=== PATIENT | male | born 1990 | race Caucasian/White ===

== ENCOUNTER 2022-04-10 04:44 | Inpatient (IN) | payer OTHER ==
[~2022-04-10] VITALS: Ht 175.3 cm; Wt 83.2 kg
[2022-04-10] MEDS ORDERED: chlordiazePOXIDE HCL 25 MG CAP PO ONE ×2 (05:15→22:00)
[2022-04-10 05:36] LABS: Urine Bacteria NONE SEEN /hpf (None Seen); Urine Blood Negative /uL (Negative); Urine Specific Gravity 1.002 (1.001-1.035); Urine WBC <1 /hpf (0 - 3)
[2022-04-10 05:53] LABS: Amphetamine Screen, Urine NEGATIVE (NEGATIVE); Barbiturate Scree,Urine NEGATIVE (NEGATIVE); Benzodiazephine Screen, Urine POSITIVE (NEGATIVE); Cannabinoid Screen, Urine NEGATIVE (NEGATIVE); Cocaine Screen, Urine NEGATIVE (NEGATIVE); Opiate Scree,Urine NEGATIVE (NEGATIVE); Phencyclidine Screen, Urine NEGATIVE (NEGATIVE)
[2022-04-10 06:51] LABS: Hematocrit 46.7 % (41.0-53.0); Hemoglobin 15.2 g/dL (13.5-17.5); Mean Corpuscular Hemoglobin 30.5 pg (28.0-32.0); Mean Corpuscular Hgb Conc. 32.6 g/dL (32.0-36.0); Mean Corpuscular Volume 93.5 fL (80.0-100.0); Red Blood Cells 4.99 10^6/uL (4.5-5.90); Red Cell Distribution Width 15.2 % (11.8-14.3); White Blood Cell 3.3 10^3/uL (4.4-10.8)
[2022-04-10 06:58] LABS: Band Neutrophils % (manual) 0; Basophils % (manual) 0 (0.0-2.0); Blast Cells 0; Eosinophils % (manual) 0 (0-7); Metamyelocytes % 0; Myelocytes % 0; Promyelocytes % 0; Reactive Lymphocytes 0
[2022-04-10 07:07] LABS: Salicylate < 1.7 mg/dL (2.8-20.0)
[2022-04-10 07:09] LABS: Albumin 3.3 g/dL (3.4-5.0); Calcium 8.8 mg/dL (8.5-10.1); Potassium 4.1 mmol/L (3.5-5.1)
[2022-04-10 07:10] LABS: Acetaminophen < 10.0 ug/mL (10-30)
[2022-04-10 07:12] LABS: BUN/Creatinine Ratio 4.4; Bilirubin, Total 0.6 mg/dL (0.2-1.0); Total Protein 8.4 g/dL (6.4-8.2)
[2022-04-10 08:37] LABS: Lymphocytes % (manual) 59 (10.0-50.0); Monocytes % (manual) 5 (0-12)
[2022-04-10] MEDS ORDERED: LORazepam 0.5 MG TAB PO ONE (09:30)
[2022-04-10] MEDS ORDERED: SODIUM CHLORIDE 0.9% 1,000 ML IV ONE (10:45)
[2022-04-10 11:18] LABS: Magnesium 2.4 mg/dL (1.6-2.6)
[2022-04-10] MEDS: FOLIC ACID 1 MG, MULTIPLE VITAMIN 10 ML, MAGNESIUM SULF SDV 50% 8 MEQ, THIAMINE INJ 100... INJ SCH ×5 (16:30)
[2022-04-10] MEDS ORDERED: chlordiazePOXIDE HCL 25 MG CAP ONE (16:56)
[2022-04-10] MEDS ORDERED: CLINDAMYCIN 900MG IV 50 ML IV ONE (18:00)
[2022-04-11] MEDS ORDERED: BENAZEPRIL HCL 10 MG TAB PO ONE (15:45)
[2022-04-11] MEDS ORDERED: SODIUM CHLORIDE 0.9% 1,000 ML IV ONE (17:45)
[2022-04-11] MEDS ORDERED: LORazepam 2MG/ML-1ML VIAL IV ONE (17:45)
[2022-04-11] MEDS ORDERED: chlordiazePOXIDE HCL 25 MG CAP PO ONE (17:45)
[2022-04-11] MEDS ORDERED: NICOTINE 14 MG/24HR TOPICAL PATCH TD ONE (19:15)
[2022-04-11] MEDS ORDERED: hydrALAZINE HCL 20 MG/ML VL IV PRN (21:15)
[2022-04-11] MEDS ORDERED: HYDROcodone-ACET 5/325MG TAB PO PRN (21:15)
[2022-04-11] MEDS ORDERED: ONDANSETRON HCL 4 MG/2 ML VIAL IV PRN (21:15)
[2022-04-11] MEDS ORDERED: DOCUSATE SOD 100 MG CAP PO PRN (21:15)
[2022-04-11] MEDS ORDERED: ACETAMINOPHEN 325 MG TAB PO PRN (21:15)
[2022-04-11] MEDS: SODIUM CHLOR 0.9% PF (SALINE LOCK) 10ML VIAL/SYR IV SCH (22:00)
[2022-04-11] MEDS ORDERED: MORPHINE SULFATE INJ 2 MG/ml SYRG IV PRN (23:15)
[2022-04-11] MEDS ORDERED: NITROGLYCERIN 0.4 MG SL TAB SL PRN (23:15)
[2022-04-12] MEDS: LORazepam 2MG/ML-1ML VIAL IV PRN ×2 (00:50→08:37)
[2022-04-12 00:52] VITALS: BP 158/112
[2022-04-12 05:11] VITALS: BP 147/100
[2022-04-12] MEDS: SODIUM CHLOR 0.9% PF (SALINE LOCK) 10ML VIAL/SYR IV SCH ×3 (05:26→22:00)
[2022-04-12 07:04] LABS: Basophils # (auto) 0 10 ^3/uL (0-0.2); Basophils % (auto) 1.1 % (0.0-2.0); Eosinophils # (auto) 0 10 ^3/uL (0-0.8); Eosinophils % (auto) 1.4 % (0.0-7.0); Hematocrit 37.7 % (41.0-53.0); Hemoglobin 12.8 g/dL (13.5-17.5); Lymphocytes # (auto) 1.1 10 ^3/uL (0.4-5.4); Lymphocytes % (auto) 35.2 % (10.0-50.0); Mean Corpuscular Hemoglobin 30.5 pg (28.0-32.0); Mean Corpuscular Volume 89.8 fL (80.0-100.0); Monocytes # (auto) 0.5 10 ^3/uL (0-1.3); Monocytes % (auto) 14.5 % (0.0-12.0); Neutrophils # (auto) 1.5 10 ^3/uL (1.6-8.6); Neutrophils % (auto) 47.8 % (37.0-80.0); Nucleated Red Blood Cells % 0.1 %; Red Cell Distribution Width 15.2 % (11.8-14.3); White Blood Cell 3.2 10^3/uL (4.4-10.8)
[2022-04-12 07:25] LABS: Albumin 2.9 g/dL (3.4-5.0); Calcium 8.9 mg/dL (8.5-10.1); Potassium 3.7 mmol/L (3.5-5.1)
[2022-04-12 07:29] LABS: BUN/Creatinine Ratio 12.3; Total Protein 6.6 g/dL (6.4-8.2)
[2022-04-12 09:00] VITALS: BP 140/95
[2022-04-12] MEDS ORDERED: MULTIPLE VITAMIN TAB PO SCH (10:00)
[2022-04-12] MEDS ORDERED: THIAMINE HCL 100 MG TAB PO SCH (10:00)
[2022-04-12] MEDS ORDERED: BENAZEPRIL HCL 10 MG TAB PO SCH (10:00)
[2022-04-12] MEDS ORDERED: ENOXAPARIN SOD 40 MG/0.4 ML SYRINGE SC SCH (10:00)
[2022-04-12] MEDS ORDERED: FOLIC ACID 1 MG TAB PO SCH (10:00)
[2022-04-12] MEDS ORDERED: amLODIPine BESYLATE 5 MG TAB PO SCH (10:00)
[2022-04-12] MEDS ORDERED: FLUoxetine HCL 20 MG CAP PO SCH (10:00)
[2022-04-12 13:00] VITALS: BP 133/89
[2022-04-12] MEDS: FOLIC ACID 1 MG, MULTIPLE VITAMIN 10 ML, MAGNESIUM SULF SDV 50% 8 MEQ, THIAMINE INJ 100... INJ SCH ×5 (14:23)
[2022-04-12 17:00] VITALS: BP 149/102
[2022-04-12 21:32] VITALS: BP 144/99
[2022-04-12 22:06] LABS: Hepatitis C Antibody Negative (Negative)
[2022-04-13] MEDS: SODIUM CHLOR 0.9% PF (SALINE LOCK) 10ML VIAL/SYR IV SCH (05:54)
[2022-04-13] MEDS ORDERED: FOLI1TAB6 PO (08:23)
[2022-04-13] MEDS ORDERED: PANT40T PO (08:23)
[2022-04-13] MEDS ORDERED: ESCI10TA PO (08:23)
[2022-04-13] MEDS ORDERED: THIA100T5 PO (08:23)
[2022-04-13] MEDS ORDERED: CHL25C PO (08:23)
[2022-04-13] MEDS ORDERED: AMLO-496 PO (08:27)
[2022-04-13 09:26] VITALS: BP 159/118
[2022-04-13] MEDS ORDERED: CITALOPRAM HYDROBR 20 MG TAB PO SCH (10:00)
[2022-04-15 09:51] LABS: Hepatitis B Surface Antibody Positive (Negative)
[2022-04-15 11:28] LABS: Hepatitis A Total Antibody Negative (Negative)
== END 2022-04-13 09:45 | disposition home or self-care (01) | DRG 432 ==
LOC: ER 04:44 → EDBD 04:44 → TELE 04-11 23:14 → TELE-CENTR 04-11 23:54
PROVIDERS: ADMIT Nurse Practitioner Family; ATTEND Family Medicine
DX: K70.9 Alcoholic liver disease, unspecified (principal); G92.9 Unspecified toxic encephalopathy; E44.1 Mild protein-calorie malnutrition; F33.1 Major depressive disorder, recurrent, moderate; L03.115 Cellulitis of right lower limb; R45.851 Suicidal ideations; R25.1 Tremor, unspecified; Z20.822 Contact with and (suspected) exposure to COVID-19; F10.129 Alcohol abuse with intoxication, unspecified; F41.9 Anxiety disorder, unspecified; Y90.8 Blood alcohol level of 240 mg/100 ml or more; E86.0 Dehydration; I10 Essential (primary) hypertension; Z68.27 Body mass index [BMI] 27.0-27.9, adult; Z56.0 Unemployment, unspecified; Z91.19 Patient's noncompliance with other medical treatment and regimen
CPT/HCPCS: 36415; 80053; 80307; 80320; 80329; 81001; 83690; 83735; 85007; 85025; 85027; 86704; 86706; 86708; 86803; 87340; 93005; 96361; 96365; G0378; J3490

== ENCOUNTER 2022-04-14 22:09 | Emergency (ER) | payer OTHER ==
[~2022-04-14] VITALS: Ht 170.2 cm; Wt 79.8 kg
[~2022-04-14 22:09] MED LIST: AMLO-496 PO; CHL25C PO; ESCI10TA PO; FOLI1TAB6 PO; PANT40T PO; THIA100T5 PO
[2022-04-14 22:21] VITALS: BP 133/76
[2022-04-14] MEDS ORDERED: IOHEXOL 300 MG/ML 100ML BOTTLE IJ ONE (22:40)
[2022-04-14 23:03] LABS: Basophils # (auto) 0.1 10 ^3/uL (0-0.2); Basophils % (auto) 0.9 % (0.0-2.0); Eosinophils # (auto) 0 10 ^3/uL (0-0.8); Eosinophils % (auto) 0.8 % (0.0-7.0); Hematocrit 41.7 % (41.0-53.0); Hemoglobin 13.9 g/dL (13.5-17.5); Lymphocytes # (auto) 2.9 10 ^3/uL (0.4-5.4); Lymphocytes % (auto) 50.5 % (10.0-50.0); Mean Corpuscular Hemoglobin 30.7 pg (28.0-32.0); Mean Corpuscular Hgb Conc. 33.4 g/dL (32.0-36.0); Mean Corpuscular Volume 92.1 fL (80.0-100.0); Monocytes # (auto) 0.7 10 ^3/uL (0-1.3); Monocytes % (auto) 11.5 % (0.0-12.0); Neutrophils # (auto) 2.1 10 ^3/uL (1.6-8.6); Neutrophils % (auto) 36.3 % (37.0-80.0); Nucleated Red Blood Cells % 0.1 %; Red Blood Cells 4.53 10^6/uL (4.5-5.90); Red Cell Distribution Width 15.9 % (11.8-14.3); White Blood Cell 5.8 10^3/uL (4.4-10.8)
[2022-04-14 23:20] LABS: Albumin 3.7 g/dL (3.4-5.0); BUN/Creatinine Ratio 4.4; Calcium 8.5 mg/dL (8.5-10.1); Potassium 3.4 mmol/L (3.5-5.1)
[2022-04-14 23:23] LABS: Bilirubin, Total 0.5 mg/dL (0.2-1.0); Total Protein 7.8 g/dL (6.4-8.2)
== END 2022-04-14 23:40 | disposition left against medical advice (07) ==
LOC: EDBD 22:09 → ER 22:16
DX: R10.9 Unspecified abdominal pain (principal); Z53.21 Procedure and treatment not carried out due to patient leaving prior to being seen by health care provider; V00.131A Fall from skateboard, initial encounter; Y93.51 Activity, roller skating (inline) and skateboarding; Y92.89 Other specified places as the place of occurrence of the external cause; Y99.8 Other external cause status
CPT/HCPCS: 36415; 80053; 82150; 83690; 85025; 93005; Q9967

== ENCOUNTER → 2022-04-15 | Emergency (ER) | payer OTHER ==
[~2022-04-15] VITALS: Ht 175.3 cm; Wt 81.6 kg
[~2022-04-15] MED LIST changes: +HYDROmorphone HCL 2 MG/ML VL/or syr IV ONE; +LORazepam 2MG/ML-1ML VIAL IV ONE; +ONDANSETRON HCL 4 MG/2 ML VIAL IV ONE; +chlordiazePOXIDE HCL 5 MG CAP PO ONE
[2022-04-15 11:25] VITALS: BP 160/102
== END | disposition home or self-care (01) ==
LOC: ER 01:27
DX: R10.9 Unspecified abdominal pain (principal); R11.0 Nausea; I10 Essential (primary) hypertension; Z79.899 Other long term (current) drug therapy
CPT/HCPCS: 74176; 96374; 96375; 96376; 99285; J1170; J2060; J2405

== ENCOUNTER 2024-06-11 20:59 | Inpatient (IN) | payer MEDICAID, OTHER ==
[~2024-06-11] VITALS: Ht 175.3 cm; Wt 94.7 kg
[~2024-06-11 20:59] MED LIST changes: -AMLO-496 PO; +AMLO1TAB23 PO; +FOLI-119 PO; -FOLI1TAB6 PO; -HYDROmorphone HCL 2 MG/ML VL/or syr IV ONE; -LORazepam 2MG/ML-1ML VIAL IV ONE; -ONDANSETRON HCL 4 MG/2 ML VIAL IV ONE; -chlordiazePOXIDE HCL 5 MG CAP PO ONE
[2024-06-11 21:29] LABS: Basophils # (auto) 0 10 ^3/uL (0-0.2); Basophils % (auto) 0.5 % (0.0-2.0); Eosinophils # (auto) 0 10 ^3/uL (0-0.8); Eosinophils % (auto) 0.5 % (0.0-7.0); Hematocrit 50.1 % (41.0-53.0); Hemoglobin 17.5 g/dL (13.5-17.5); Lymphocytes % (auto) 26.7 % (10.0-50.0); Mean Corpuscular Hemoglobin 29.8 pg (28.0-32.0); Mean Corpuscular Volume 85.4 fL (80.0-100.0); Monocytes # (auto) 0.7 10 ^3/uL (0-1.3); Neutrophils # (auto) 4.6 10 ^3/uL (1.6-8.6); Neutrophils % (auto) 62.3 % (37.0-80.0); Nucleated Red Blood Cells % 0.1 %; Red Blood Cells 5.86 10^6/uL (4.5-5.90); Red Cell Distribution Width 14.3 % (11.8-14.3); White Blood Cell 7.4 10^3/uL (4.4-10.8)
[2024-06-11] MEDS: ONDANSETRON HCL 4 MG/2 ML VIAL IM ONE (21:30)
[2024-06-11] MEDS: LORazepam 2MG/ML-1ML VIAL IV ONE (21:31)
[2024-06-11 21:41] LABS: INR 0.97 (0.9-1.15); Prothrombin Time 10.3 sec (9.3-11.8)
[2024-06-11 21:46] VITALS: O2SAT 99
[2024-06-11 21:52] LABS: Alanine Aminotransferase 213 U/L (7-40); Albumin 4.7 g/dL (3.2-4.8); Alkaline Phosphatase 85 U/L (46-116); Anion Gap 15 (5-15); Aspartate Aminotransferase 199 U/L (13-40); BUN/Creatinine Ratio 8.3 (10.0-20.0); Bilirubin, Total 0.9 mg/dL (0.2-1.0); Blood Urea Nitrogen 7 mg/dL (9-23); Calcium 9.3 mg/dL (8.7-10.4); Carbon Dioxide 21 mmol/L (20-30); Chloride 101 mmol/L (98-107); Glucose 104 mg/dL (74-106); Lipase 54 U/L (12-53); Potassium 4.1 mmol/L (3.5-5.1); Sodium 137 mmol/L (136-145); Total Protein 7.9 g/dL (5.7-8.2)
[2024-06-11] MEDS: PANTOPRAZOLE 40 MG/10 ML VIAL INJ IV ONE (23:00)
[2024-06-11] MEDS ORDERED: DOCUSATE SOD 100 MG CAP PO PRN (23:15)
[2024-06-11] MEDS ORDERED: IBUPROFEN 600 MG TAB PO PRN (23:15)
[2024-06-11] MEDS ORDERED: MORPHINE SULFATE INJ 2 MG/ml SYRG IV PRN (23:45)
[2024-06-11] MEDS ORDERED: NITROGLYCERIN 0.4 MG SL TAB SL PRN (23:45)
[2024-06-12] MEDS: LORazepam 2MG/ML-1ML VIAL IV PRN ×2 (04:10→20:41)
[2024-06-12] MEDS: ONDANSETRON HCL 4 MG/2 ML VIAL IV PRN (04:11)
[2024-06-12] MEDS: chlordiazePOXIDE HCL 25 MG CAP PO PRN (05:07)
[2024-06-12] MEDS: SODIUM CHLOR 0.9% PF (SALINE LOCK) 10ML VIAL/SYR IV SCH (05:11)
[2024-06-12 05:56] LABS: Basophils # (auto) 0 10 ^3/uL (0-0.2); Basophils % (auto) 0.4 % (0.0-2.0); Eosinophils # (auto) 0.1 10 ^3/uL (0-0.8); Eosinophils % (auto) 1.1 % (0.0-7.0); Hematocrit 50.9 % (41.0-53.0); Hemoglobin 17.2 g/dL (13.5-17.5); Lymphocytes # (auto) 1.9 10 ^3/uL (0.4-5.4); Lymphocytes % (auto) 24.8 % (10.0-50.0); Mean Corpuscular Hemoglobin 29.3 pg (28.0-32.0); Mean Corpuscular Hgb Conc. 33.7 g/dL (32.0-36.0); Mean Corpuscular Volume 87.1 fL (80.0-100.0); Monocytes # (auto) 0.8 10 ^3/uL (0-1.3); Monocytes % (auto) 10.3 % (0.0-12.0); Neutrophils # (auto) 4.7 10 ^3/uL (1.6-8.6); Neutrophils % (auto) 63.4 % (37.0-80.0); Nucleated Red Blood Cells % 0.6 %; Red Blood Cells 5.85 10^6/uL (4.5-5.90); Red Cell Distribution Width 14.3 % (11.8-14.3); White Blood Cell 7.5 10^3/uL (4.4-10.8)
[2024-06-12 06:12] LABS: Alanine Aminotransferase 222 U/L (7-40); Albumin 4.4 g/dL (3.2-4.8); Alkaline Phosphatase 82 U/L (46-116); Anion Gap 15 (5-15); Aspartate Aminotransferase 192 U/L (13-40); BUN/Creatinine Ratio 8.8 (10.0-20.0); Bilirubin, Total 1.2 mg/dL (0.2-1.0); Blood Urea Nitrogen 7 mg/dL (9-23); Calcium 9.3 mg/dL (8.7-10.4); Carbon Dioxide 22 mmol/L (20-30); Chloride 100 mmol/L (98-107); Glucose 75 mg/dL (74-106); Potassium 4.4 mmol/L (3.5-5.1); Sodium 137 mmol/L (136-145); Total Protein 7.6 g/dL (5.7-8.2)
[2024-06-12] MEDS: THIAMINE 100mg/ml INJ (200mg/2ml VIAL) IV SCH (09:41)
[2024-06-12] MEDS: PANTOPRAZOLE 40 MG/10 ML VIAL INJ IV SCH (09:41)
[2024-06-12] MEDS: FOLIC ACID 1 MG in D5W 5% 50 ML INJ SCH (09:42)
[2024-06-12] MEDS: MULTIPLE VITAMIN TAB PO SCH (09:45)
[2024-06-12 11:22] VITALS: RESP 21
[2024-06-12 11:23] VITALS: RESP 21
[2024-06-12] MEDS ORDERED: OMEP20TA PO (12:25)
[2024-06-12] MEDS ORDERED: PROP60CA34 PO (12:25)
[2024-06-12] MEDS ORDERED: BENA-36 PO (12:27)
[2024-06-12 13:00] VITALS: BP 145/79; PULSE 123; RESP 16; TEMP 98.6; O2SAT 98
[2024-06-12] MEDS: D5W/SOD CHL 0.45% 1,000 ML IV SCH (15:00)
[2024-06-12] MEDS ORDERED: LORazepam 2MG/ML-1ML VIAL IV PRN (15:30)
[2024-06-12] MEDS: HYDROcodone-ACET 5/325MG TAB PO PRN (15:46)
[2024-06-12 17:00] VITALS: BP 156/96; PULSE 123; RESP 16; TEMP 97.8; O2SAT 97
[2024-06-12 20:00] VITALS: PULSE 112; RESP 17; O2SAT 95
[2024-06-12 21:00] VITALS: BP 139/82; PULSE 112; RESP 17; TEMP 98.2; O2SAT 95
[2024-06-13 05:00] VITALS: BP 125/68; PULSE 77; RESP 19; TEMP 97.9; O2SAT 98
[2024-06-13 08:04] VITALS: PULSE 112; RESP 17; O2SAT 95
== END 2024-06-13 08:35 | disposition left against medical advice (07) | DRG 816 ==
LOC: ER 20:59 → EDBD 20:59 → EDUNIT# 20:59 → TELE 23:39 → TELE-WESTW 06-12 13:37
PROVIDERS: ADMIT Nurse Practitioner Family; ATTEND Nurse Practitioner Family
DX: T51.91XA Toxic effect of unspecified alcohol, accidental (unintentional), initial encounter (principal); G92.8 Other toxic encephalopathy; R16.0 Hepatomegaly, not elsewhere classified; K74.60 Unspecified cirrhosis of liver; E86.0 Dehydration; I10 Essential (primary) hypertension; K86.1 Other chronic pancreatitis; Z53.29 Procedure and treatment not carried out because of patient's decision for other reasons; Y90.4 Blood alcohol level of 80-99 mg/100 ml; F10.129 Alcohol abuse with intoxication, unspecified; F10.139 Alcohol abuse with withdrawal, unspecified; Y90.1 Blood alcohol level of 20-39 mg/100 ml
CPT/HCPCS: 36415; 76705; 80053; 80320; 83690; 85025; 85610; G0378; J2405; J2470; J7060

== ENCOUNTER 2024-11-06 09:02 | Emergency (ER) | payer MEDICAID ==
[~2024-11-06] VITALS: Ht 175.3 cm; Wt 91.0 kg
[~2024-11-06 09:02] MED LIST changes: +BENA-36 PO; -CHL25C PO; -ESCI10TA PO; -FOLI-119 PO; +OMEP20TA PO; -PANT40T PO; +PROP60CA34 PO; -THIA100T5 PO
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
[2024-11-06 09:38] VITALS: PULSE 124; RESP 20; O2SAT 96
[2024-11-06 09:50] VITALS: BP 152/68; PULSE 78; RESP 17; TEMP 98.3; O2SAT 99
== END 2024-11-06 09:54 ==
LOC: ER 09:02
DX: F10.129 Alcohol abuse with intoxication, unspecified (principal); I10 Essential (primary) hypertension; Z79.899 Other long term (current) drug therapy; Y90.6 Blood alcohol level of 120-199 mg/100 ml
CPT/HCPCS: 36415; 80320